=== PATIENT | female | born 1945 | race Caucasian/White ===

== ENCOUNTER 2017-08-31 08:00 | Inpatient (IN) | payer MEDICARE ==
[~2017-08-31] VITALS: Ht 154.9 cm; Wt 52.7 kg
[2017-09-14] MEDS ORDERED: POVIDONE IODINE 7.5% SCRUB 118 ML BOTTLE TOPICAL SCH (05:45)
[2017-09-14] MEDS ORDERED: SODIUM CHLORID 0.9% 500 ML IV PRN (05:45)
[2017-09-14] MEDS ORDERED: METOPROLOL TARTRATE 25 MG TAB PO PRN (05:45)
[2017-09-14] MEDS ORDERED: CHLORHEXIDINE GLUCONATE 4% SOLN 120 ML BTL TOPICAL SCH (05:45)
[2017-09-14] MEDS ORDERED: LACTATED RINGER'S 1000 ML IV PRN (05:45)
[2017-09-14] MEDS ORDERED: CHLORHEXIDINE GLUCONATE 2 % 1 PACK (2 CLOTHS) TOPICAL PRN (05:45)
[2017-09-14] MEDS ORDERED: POVIDONE IODINE 5% (ANTISEPSIS KIT) 4 APPLICATIONS EACH NARE PRN (05:45)
[2017-09-14] MEDS ORDERED: ceFAZolin 2 GM/DEX PREMIX 50 ML IV SCH (06:00)
[2017-09-14] MEDS ORDERED: FAT EMULSION 20% INJ 0 ML ONE (06:02)
[2017-09-14] MEDS ORDERED: BUPIVACAINE LIPOSOME PF 1.3% 20 ML VIAL ONE ×2 (06:15→06:21)
[2017-09-14] MEDS ORDERED: GENTAMICIN SULFATE 80 MG/2 ML VIAL ONE (06:19)
[2017-09-14] MEDS ORDERED: MIDAZOLAM HCL 2 MG/2 ML VIAL ONE ×2 (06:21→07:39)
[2017-09-14] MEDS ORDERED: FAMOTIDINE 20 MG/2 ML VIAL ONE (06:22)
[2017-09-14] MEDS ORDERED: ACETAMINOPHEN 1000 MG/100 ML 100 ML IV ONE (06:37)
[2017-09-14] MEDS ORDERED: BUPIVACAINE PF 0.75% DEX-WATER INJ 2 ML AMP ONE ×2 (06:38→06:58)
[2017-09-14] MEDS ORDERED: PROPOFOL 500 MG/50 ML INJ 0 ML ONE (06:40)
[2017-09-14] MEDS ORDERED: TRANEXAMIC ACID IV SCH ×2 (07:00→10:00)
[2017-09-14] MEDS ORDERED: SODIUM CHLORIDE 0.9% IV SCH ×2 (07:00→10:00)
[2017-09-14] MEDS ORDERED: MAGNESIUM HYDROXIDE SUSP 30 ML CUP PO PRN (07:00)
[2017-09-14] MEDS ORDERED: EXPAREL PERI-ARTICULAR INJECTION (TOTAL VOL. 100 ML) P-ARTICULR SCH ×2 (07:00)
[2017-09-14] MEDS ORDERED: MORPHINE SULFATE 4 MG/ML INJ IV PUSH PRN (07:00)
[2017-09-14] MEDS ORDERED: Post-op Orders (for Pharmacy) XX ONE (07:00)
[2017-09-14] MEDS ORDERED: oxyCODONE/ACETAMINOPHEN 5 MG/325 MG TAB PO PRN (07:00)
[2017-09-14] MEDS ORDERED: TRANEXAMIC ACID INJ 0 MG in SODIUM CHLORIDE 0.9% INJ 100 ML IV SCH (07:00)
[2017-09-14] MEDS ORDERED: ECASA81 PO (07:04)
--- NOTE | 2017-09-14 07:06 | HHI.FF ---
Face to Face Verification Diagnosis: (1) Status post total left knee replacement Physical Therapy Gait training Knee: Total knee, Protocol: Left, Gait training, Full weight bearing Left LE Weight Bearing: WB as tolerated Left LE Range of Motion: Active ROM (AROM, AAROM, PROM. ROM goal is 0 extension to 140 of flexion. Range in the operating room was 0 extension to 150 of flexion.) Nursing Nursing: Dressing changes Dressing Changes: Daily dressing change, Coverderm/Primapore Additional Instructions Do not remove [facility]. I have seen patient Dionne Armenta on 09/14/17. My clinical findings support the need for the requested home health care services because: Ltd mobility - disease progression Limited ability to care for self High risk of falls I certify that my clinical findings support that this patient is homebound because: Post-op weakness Unsteady gait/balance Unsafe to leave home unassisted Destinee Bradshaw MD (Charles) September 14, 2017 07:06
[2017-09-14] MEDS ORDERED: ONDANSETRON ODT 4 MG TAB PO PRN (08:15)
[2017-09-14] MEDS: CYANOCOBALAMIN 1,000 MCG TAB PO SCH (09:00)
[2017-09-14] MEDS: FOLIC ACID 1 MG TAB PO SCH (09:00)
[2017-09-14] MEDS ORDERED: NON-FORMULARY DRUG (Biotin 1,000 MG) PO SCH (09:00)
[2017-09-14] MEDS ORDERED: NON-FORMULARY DRUG (Glucosamine-Chondroitin 1 TAB) PO SCH (09:00)
[2017-09-14] MEDS: VALSARTAN 160 MG TAB PO SCH (09:00)
[2017-09-14] MEDS: CALCIUM/VITAMIN D 250 MG/125 U TAB PO SCH ×2 (09:00→20:39)
--- NOTE | 2017-09-14 09:49 | PD.OP ---
Operative Report Date of Surgery: September 14, 2017 Preoperative Diagnosis: (1) Primary osteoarthritis of left knee Postoperative Diagnosis: (1) Primary osteoarthritis of left knee Procedure: Total knee arthroplasty using [employer] Triathlon prosthesis (cemented) Anesthesia: Spinal with supplemental general and supplemental adductor canal block regional and local with Exparel Surgeon: Tony Bradshaw MD Clip Bolter And Wrapper(s): RAJAN Samuel Operation and Findings: Indications and Findings: This 72-year-old woman has had left knee pain for the past 3 years. This has been progressively worsening so that she has limited ambulation tolerance compared to what she previously was able to do. She has pain in the entire knee with difficulty ascending and descending stairs and difficulty standing from a seated position. She has been treated with oral analgesics, oral steroids, activity modification, intra-articular corticosteroids, Visco supplementation, physical therapy and ambulatory aids. She has been unable to take anti-inflammatory agents because of renal disease. Physical findings showed some degenerative varum with tenderness in the medial and lateral compartments, crepitation throughout the entire range of motion and tenderness. X-rays showed severe osteoarthritis with loss of articular cartilage to [id number] in the medial compartment, osteophytes and some medial eburnation. Operative findings: There was severe osteoarthritis it was tricompartmental in nature. The predominant change was immediately where there was some subchondral sclerosis. There are osteophytes throughout the knee. The medullary bone beyond the area of the joint was somewhat osteoporotic. There is some medial femoral condyle cysts. The prosthesis used was a [employer] Triathlon prosthesis. The femur was a size 5, cruciate retaining, cemented. The tibial baseplate was a size 5 cemented with an 11 mm, cruciate retaining, X3 polyethylene spacer. The patella was a size 38 mm asymmetric X3 polyethylene. The cement was Symplex. The patient was brought to the clean-air operating suite. A spinal anesthetic was administered as well as a regional anesthetic by adductor canal block. The position was supine with a small bolster under the hip on the operative side. A pneumatic tourniquet was applied to the upper thigh. The lower extremity was then prepped with alcohol, Hibiclens and ChloraPrep and draped in the usual manner with the knee draped free. An appropriate timeout procedure was carried out. An incision was made from about 3 fingerbreadths above the superior medial pole of patella down the tibial tubercle on the medial side. The incision was deepened through the subcutaneous tissue to the retinacular structures which were exposed medially and laterally. A medial retinacular incision was then made from the superior middle pole of patella down the tibial tubercle and up into the quadriceps tendon splitting it longitudinally and the medial one third. The patella was reflected. The infrapatellar fat pad was debulked. The anterior cruciate ligament was excised. Medial and lateral meniscectomies were initiated. Fenestrations were made in the distal femur and proximal tibia for intramedullary referencing guides. The distal femoral cutting guide and jig were then assembled for a 5, 8 mm cut. When this was fit position and placed cutting block was stabilized with pins. The jig was removed. The distal femoral cut was then completed with the oscillating saw. The sizing guide was then positioned in place along Whitesides line and the epicondylar axis and stabilized with pins. The femoral size was then determined as noted above. The 4-in-1 cutting block was then positioned in place. Anterior and posterior cuts were made followed by posterior and anterior chamfer cuts taking care to prevent injury to ligamentous structures. Osteophytes were then trimmed from the distal femur. A bone plug was then placed into the fenestration of the distal femur. Some cysts were noted in the medial aspect of the femur. These were curetted and packed with bone graft from the resected bone. The proximal tibia was then exposed. The medial and lateral meniscectomies were completed. The proximal tibial cutting guide was then positioned in place and stabilized with a pin for rotation. The depth of cut was then verified with a stylus off the lateral side. The cutting block was stabilized with pins. The jig was removed. The depth of cut was then verified and adjusted appropriately with the use of the spacer block. The proximal tibial cut was then made with the oscillating saw taking care to prevent injury to neurovascular and ligamentous structures. Proximal tibial bone was removed. Local anesthetic was administered with Exparel in the posterior capsule. The tibial baseplate trial was then positioned in place. After verifying the appropriate size, the base plate trial was positioned in place along with its spacer. The femoral component was then impacted into place. The alignment was checked. The tibial baseplate was then pinned in place on the tibia. Attention was directed to the patella. The patella drill guide was positioned in place for the appropriate sized patella. Patellar drilling was then carried out. The trial patella was positioned in place. The knee was taken through a range of motion which was easily 0 extension to 150. The patella trial was removed. The femoral drill holes were made. The femoral trials were removed. The tibial spacer was removed. A bone plug was placed into the proximal tibia. The tibial punch was impacted through the proximal tibial punch guide. The cut ends of bone were then cleaned with pulse lavage. Simplex cement was then pressurized into the proximal aspect of the tibia after drying. The tibial baseplate was then impacted into place and seated appropriately. Excess cement was trimmed. The spacer was inserted. The distal end of the femur was then cleaned with pulse lavage. After drying, cement was applied to the distal end of the femur and the femoral component. The the femoral component was then impacted into place and seated appropriately. Excess cement was trimmed. The posterior surface of the patella was cleaned with pulse lavage. Cement was then injected into the posterior surface of the patella and the patella component. The patella component was then seated with the patellar clamp and tightened appropriately. Excess cement cement was trimmed. The remainder of the Exparel was then injected throughout the knee as a local anesthetic. Drains were brought out the superior lateral aspect of the suprapatellar pouch. The knee was taken through a range of motion which was comparable to the previous range of motion with excellent stability in flexion and extension and appropriate patellofemoral tracking. Wound closure then commenced using 0 Vicryl interrupted [id number] sutures for the capsular and fascial structures, 2- 0 Vicryl interrupted simple sutures with buried knots for the subcutaneous tissues and 4-0 Monocryl, continuous subcuticular closure for the skin. The wound was then dressed with Dermabond Prineo followed by Optifoam silver impregnated dressing. Sterile soft roll with a cooling pad and Viral bandage from the base of the toes to mid thigh were then applied. Patient was then transferred from the operating room to the recovery room in satisfactory condition having tolerated procedure well. Counts are correct. Specimens: None. Estimated blood loss: 200 mL Destinee Bradshaw MD (Charles) September 14, 2017 09:48
[2017-09-14] MEDS ORDERED: DO NOT ADM ANY ANTICOAGULANT DRUGS PRN (10:00)
[2017-09-14] MEDS: LACTATED RINGER'S 1000 ML INJ 1,000 ML IV SCH (10:15)
--- NOTE | 2017-09-14 11:45 | RADRPT ---
EXAM DATE/TIME: 09/14/2017 10:20 [facility] COMPARISON: No previous studies available for comparison. INDICATIONS : Post-op left knee. MEDICAL HISTORY : None. SURGICAL HISTORY : None. ENCOUNTER: Initial ACUITY: 1 day PAIN SCORE: 0/10 LOCATION: Left knee. FINDINGS: Total knee arthroplasty is present. Hardware appears intact. Alignment is anatomic. Surgical drains a re present. CONCLUSION: Satisfactory appearance post left TKA Gilmar Hunt MD on September 14, 2017 at 11:43 Board Certified Radiologist. This report was verified electronically.
[2017-09-14 12:00] VITALS: BP 131/62; PULSE 75; RESP 18; TEMP 97.1; O2SAT 97
[2017-09-14] MEDS ORDERED: ceFAZolin INJ 1,000 MG VIAL IV ONE (12:00)
[2017-09-14] MEDS ORDERED: ONDANSETRON HCL 4 MG/2 ML VIAL IV PUSH ONE (12:00)
[2017-09-14] MEDS ORDERED: LACTATED RINGER'S 1000 ML INJ 1,000 ML IV ONE (12:00)
[2017-09-14] MEDS ORDERED: PHENYLEPH/NS 1000 MCG/10 ML SYR IV ONE (12:00)
[2017-09-14] MEDS ORDERED: ePHEDrine/NS 25 MG/5 ML SYRINGE IV ONE (12:00)
[2017-09-14] MEDS ORDERED: PROPOFOL 200 MG/20 ML AMP IV ONE (12:00)
[2017-09-14] MEDS ORDERED: LIDOCAINE HCL 1% PF 5 ML SYRINGE OTHER ONE (12:00)
[2017-09-14] MEDS ORDERED: DEXAMETHASONE SOD PHOS 4 MG/ML VIAL IV ONE (12:00)
[2017-09-14] MEDS: KETOROLAC TROMETHAMINE 30 MG/ML (IVP) VIAL IVP SCH ×2 (14:40→20:42)
--- NOTE | 2017-09-14 15:39 | PD.CONS ---
H[facility] Consult Requested By DR GEMINI OSBORN MD Reason for Consult Medical management Primary Care Physician Bib Soto MD Diagnoses: History of Present Illness Patient is a 72-year-old female. Who underwent left total knee arthroplasty due to severe osteoarthritis. Patient tolerated the procedure well. Is now being seen postoperatively. We have been asked to see her regarding help with medical management. Review of Systems Constitutional: DENIES: Diaphoretic episodes, Fatigue, Fever, Weight gain, Weight loss, Chills, Dizziness, Change in appetite, Night Sweats Endocrine: DENIES: Abnorml menstrual pattern, Heat/cold intolerance, Polydipsia , Polyuria, Polyphagia Eyes: DENIES: Blurred vision, Diplopia, Eye inflammation, Eye pain, Vision loss , Photosensitivity, Double Vision Ears, nose, mouth, throat: DENIES: Tinnitus, Hearing loss, Vertigo, Nasal discharge, Oral lesions, Throat pain, Odynophagia Respiratory: DENIES: Apneas, Cough, Snoring, Wheezing, Hemoptysis, Sputum production, Shortness of breath Cardiovascular: DENIES: Chest pain, Palpitations, Syncope, Dyspnea on Exertion , PND, Lower Extremity Edema, Orthopnea, Claudication Gastrointestinal: DENIES: Abdominal pain, Black stools, Bloody stools, Constipation, Diarrhea, Nausea, Vomiting, Difficulty Swallowing Genitourinary: DENIES: Abnormal vaginal bleeding, Dysmenorrhea, Dyspareunia, Sexual dysfunction Musculoskeletal: COMPLAINS OF: Joint pain, DENIES: Muscle aches, Stiffness, Joint Swelling, Back pain, Neck pain Integumentary: DENIES: Abnormal pigmentation, Pruritus, Rash, Nail changes, Breast masses, Breast skin changes, Nipple discharge Hematologic/lymphatic: DENIES: Bruising, Lymphadenopathy Immunologic/allergic: DENIES: Eczema, Urticaria Neurologic: COMPLAINS OF: Abnormal gait, DENIES: Headache, Localized weakness, Paresthesias, Seizures, Speech Problems, Tremor, Poor Balance Psychiatric: DENIES: Anxiety, Confusion, Mood changes, Depression, Hallucinations, Agitation, Suicidal Ideation, Homicidal Ideation, Delusions Except as stated in HPI: all other systems reviewed are Neg Past Family Social History Allergies: Coded Allergies: hydromorphone (Verified Allergy, Severe, Cardiac Arrest, 08/31/17) Iodinated Contrast- Oral and IV Dye (Verified Allergy, Unknown, 09/14/17) polymyxin B (Verified Allergy, Unknown, 09/14/17) NSAIDS (Non-Steroidal Anti-Inflamma (Verified Adverse Reaction, Severe, 08/31/17) pt only has one kidney hydrocodone (Unverified Adverse Reaction, Intermediate, Itching, 12/09/16) Past Medical History Chronic neck pain Numbness and tingling in toes left leg History of ACDF in the neck headaches Coronary artery disease and history of coronary stent hypercholesterolemia History of arrhythmia History of right kidney stent right renal stent Osteoarthritis left knee arthroscopically Hysterectomy Hypertension Hyperlipidemia Past Surgical History ACDF of her neck Coronary artery disease stent in the proximal left anterior descending artery in 2003 Right kidney renal stent in 2003 Left knee arthroscopic surgery Hysterectomy Status post left foot fracture Status post right elbow fracture Reported Medications Reported Meds & Active Scripts Active Reported Magnesium Oxide 400 Mg Tab PO DAILY Glucosamine-Chondroitin 500-400 Mg Tab 1 Tab PO BID Folic Acid 800 Mcg Tab 800 Mcg PO DAILY Vitamin B-12 (Cyanocobalamin) 1,000 Mcg Tab 1,000 Mcg PO DAILY Caltrate 600+D Plus Minerals (Calcium Carbonate-Vitamin D W/Minerals) 600-800 Mg -Unit Tab 1 Tab PO BID Toprol XL (Metoprolol Succinate) 50 Mg Tab 50 Mg PO HS Multi-Vitamins (Multiple Vitamin) 1 Tab Tab PO DAILY Diovan (Valsartan) 160 Mg Tab 160 Mg PO DAILY Ambien (Zolpidem Tartrate) 5 Mg Tab 5 Mg PO HS PRN Biotin 1,000 Mcg Tab 1,000 Mg PO DAILY Lipitor (Atorvastatin Calcium) 40 Mg Tab 40 Mg PO HS Aspirin EC (Aspirin) 81 Mg Tabdr 81 Mg PO DAILY Norvasc (Amlodipine Besylate) 5 Mg Tab 5 Mg PO HS Active Ordered Medications Current Medications Lactated Ringer's 1,000 ml @ 30 mls/hr Q24H PRN IV SEE LABEL COMMENTS Last administered on 09/14/17at 06:00; Start 09/14/17 at 05:45; Stop 09/17/17 at 05:44 Sodium Chloride 500 ml @ 30 mls/hr [id number] PRN IV SEE LABEL COMMENTS; Start at 05:45; Stop 09/17/17 at 05:44 Metoprolol Tartrate (Lopressor) 25 mg GROUP PRODUCT MANAGER PRN PO SEE LABEL COMMENTS; Start 09/14/17 at 05:45; Stop 09/17/17 at 05:44 Povidone Iodine (Betadine 5% Antisepsis Kit) 1 applic GROUP PRODUCT MANAGER PRN EACH NARE SEE LABEL COMMENTS; Start 09/14/17 at 05:45; Stop 09/17/17 at 05:44; Status Cancel Chlorhexidine Gluconate (Chlorhexidine 2% Cloth) 3 pack GROUP PRODUCT MANAGER PRN TOPICAL SEE LABEL COMMENTS Last administered on 09/14/17at 05:30; Start 09/14/17 at 05:45 ; Stop 09/17/17 at 05:44 Povidone Iodine (Betadine 7.5% Scrub) 1 applic ONCE TOPICAL ; Start 09/14/17 at 05:45; Stop 09/17/17 at 05:44 Chlorhexidine Gluconate (Hibiclens 4% Top Soln) 1 applic ONCE TOPICAL ; Start at 05:45; Stop 09/17/17 at 05:44 Tranexamic Acid 527 mg/Sodium Chloride 105.27 ml @ 200 mls/ hr ONCE IV Last administered on 09/14/17at 07:11; Start 09/14/17 at 07:00; Stop 09/14/17 at 13:00 ; Status DC Tranexamic Acid 527 mg/Sodium Chloride 105.27 ml @ 200 mls/ hr ONCE IV Last administered on 09/14/17at 10:29; Start 09/14/17 at 10:00; Stop 09/14/17 at 16:00 Bupivacaine Liposome 20 ml/ Sodium Chloride 100 ml @ 200 mls/hr ONCE P- ARTICULR Last administered on 09/14/17at 07:34; Start 09/14/17 at 07:00; Stop at 13:00; Status DC Cefazolin Sodium/ Dextrose 50 ml @ 100 mls/hr GROUP PRODUCT MANAGER IV Last administered on 09/14/17at 07:24; Start 09/14/17 at 06:00; Stop 09/15/17 at 05:59 Fat Emulsion Intravenous 0 ml @ As Directed STK-MED ONCE .ROUTE ; Start at 06:02; Stop 09/14/17 at 06:03; Status DC Bupivacaine Liposome (Exparel Pf 1.3% Inj) 20 ml STK-MED ONCE .ROUTE ; Start at 06:15; Stop 09/14/17 at 06:16; Status DC Gentamicin Sulfate (Gentamicin Inj) 240 mg STK-MED ONCE .ROUTE Last administered on 09/14/17at 07:34; Start 09/14/17 at 06:19; Stop 09/14/17 at 06:20 ; Status DC Bupivacaine Liposome (Exparel Pf 1.3% Inj) 20 ml STK-MED ONCE .ROUTE ; Start at 06:21; Stop 09/14/17 at 06:22; Status DC Fentanyl Citrate (fentaNYL INJ) 100 mcg STK-MED ONCE .ROUTE ; Start 09/14/17 at 06:21; Stop 09/14/17 at 06:22; Status DC Midazolam HCl (Versed Inj) 2 mg STK-MED ONCE .ROUTE ; Start 09/14/17 at 06:21; Stop 09/14/17 at 06:22; Status DC Famotidine (Pepcid Inj) 20 mg STK-MED ONCE .ROUTE ; Start 09/14/17 at 06:22; Stop 09/14/17 at 06:23; Status DC Acetaminophen 100 ml @ As Directed STK-MED ONCE IV ; Start 09/14/17 at 06:37; Stop 09/14/17 at 06:38; Status DC Fentanyl Citrate (fentaNYL INJ) 100 mcg STK-MED ONCE .ROUTE ; Start 09/14/17 at 06:37; Stop 09/14/17 at 06:38; Status DC Bupivacaine HCl/ Dextrose (Marcaine Spinal Inj) 2 ml STK-MED ONCE .ROUTE ; Start 09/14/17 at 06:38; Stop 09/14/17 at 06:39; Status DC Propofol 0 ml @ As Directed STK-MED ONCE .ROUTE ; Start 09/14/17 at 06:40; Stop 09/14/17 at 06:41; Status DC Bupivacaine HCl/ Dextrose (Marcaine Spinal Inj) 2 ml STK-MED ONCE .ROUTE ; Start 09/14/17 at 06:58; Stop 09/14/17 at 06:59; Status DC Lactated Ringer's 1,000 ml @ 80 mls/hr [id number] IV Last administered on at 10:15; Start 09/14/17 at 08:00 Cefazolin Sodium 1000 mg/Sodium Chloride 100 ml @ 200 mls/hr Q6H IV Last administered on 09/14/17at 13:11; Start 09/14/17 at 13:00; Stop 09/15/17 at 01:29 Miscellaneous Information (Misc Post-op Orders (for Pharmacy)) STAT ONCE XX ; Start 09/14/17 at 07:00; Stop 09/14/17 at 08:02; Status DC Morphine Sulfate (Morphine Inj) 4 mg Q3H PRN IV PUSH BREAKTHROUGH PAIN; Start 09/14/17 at 07:00 Oxycodone/ Acetaminophen (Percocet 5-325 Mg) 1 tab Q4H PRN PO PAIN LESS THAN 5 ON SCALE; Start 09/14/17 at 07:00 Oxycodone/ Acetaminophen (Percocet 5-325 Mg) 2 tab Q4H PRN PO PAIN SCALE 5 TO 10; Start 09/14/17 at 07:00 Ketorolac Tromethamine (Toradol Inj) 15 mg Q6H IVP Last administered on at 14:40; Start 09/14/17 at 14:00; Stop 09/16/17 at 08:01 Tranexamic Acid / Sodium Chloride 100 ml @ 200 mls/hr UNSCH IV ; Start at 07:00; Stop 09/14/17 at 07:29; Status UNV Ondansetron HCl (Zofran Odt) 4 mg Q6H PRN PO NAUSEA OR VOMITING; Start at 08:15 Docusate Sodium (Colace) 100 mg BID PO ; Start 09/15/17 at 21:00 Zolpidem Tartrate (Ambien) 5 mg HS PRN PO SLEEP; Start 09/14/17 at 21:00 Magnesium Hydroxide (Milk Of Magnesia Liq) 30 ml DAILY PRN PO CONSTIPATION; Start 09/14/17 at 07:00 Aspirin (Ecotrin Ec) 81 mg BID PO ; Start 09/15/17 at 09:00 Amlodipine Besylate (Norvasc) 5 mg HS PO ; Start 09/14/17 at 21:00 Atorvastatin Calcium (Lipitor) 40 mg HS PO ; Start 09/14/17 at 21:00 Cyanocobalamin (Vitamin B12) 1,000 mcg DAILY PO ; Start 09/14/17 at 09:00 Folic Acid (Folate) 1 mg DAILY PO ; Start 09/14/17 at 09:00 Metoprolol Succinate (Toprol Xl) 50 mg HS PO ; Start 09/14/17 at 21:00 Valsartan (Diovan) 160 mg DAILY PO ; Start 09/14/17 at 09:00 Non-Formulary Medication 1,000 mg DAILY PO ; Start 09/14/17 at 09:00; Stop 09/14 at 09:00; Status DC Calcium/Vitamin D (Oscal-D 250-125) 500 mg BID PO ; Start 09/14/17 at 09:00 Non-Formulary Medication 1 tab BID PO ; Start 09/14/17 at 09:00; Stop 09/14/17 at 09:00; Status DC Midazolam HCl (Versed Inj) 2 mg STK-MED ONCE .ROUTE ; Start 09/14/17 at 07:39; Stop 09/14/17 at 07:40; Status DC Miscellaneous Information ([facility] Nursing Information) ALL NURSING DEPARTME... UNSCH PRN .XX SEE LABEL COMMENTS; Start 09/14/17 at 10:00; Stop 09/15/17 at 09: 59 Lactated Ringer's 1,000 ml @ As Directed STK-MED ONCE IV ; Start 09/14/17 at 12 :00; Stop 09/14/17 at 12:19; Status DC Lidocaine HCl (Xylocaine-Mpf 1% Inj) 5 ml STK-MED ONCE OTHER ; Start 09/14/17 at 12:00; Stop 09/14/17 at 12:19; Status DC Phenylephrine HCl (Neosynephrine/ NS 1000 Mcg/10ml Syr) 1,000 mcg STK-MED ONCE IV ; Start 09/14/17 at 12:00; Stop 09/14/17 at 12:19; Status DC Ephedrine Sulfate (ePHEDrine/NS 25 MG/5 ML SYR) 50 mg STK-MED ONCE IV ; Start at 12:00; Stop 09/14/17 at 12:19; Status DC Dexamethasone Sodium Phosphate (Decadron Inj) 8 mg STK-MED ONCE IV ; Start 09/14 at 12:00; Stop 09/14/17 at 12:19; Status DC Ondansetron HCl (Zofran Inj) 4 mg STK-MED ONCE IV PUSH ; Start 09/14/17 at 12:00 ; Stop 09/14/17 at 12:19; Status DC Cefazolin Sodium (Ancef Inj) 1,000 mg STK-MED ONCE IV ; Start 09/14/17 at 12:00 ; Stop 09/14/17 at 12:19; Status DC Propofol (Diprivan 200 Mg/20 ml Inj) 400 mg STK-MED ONCE IV ; Start 09/14/17 at 12:00; Stop 09/14/17 at 12:19; Status DC Family History Atherosclerotic heart disease Malignancy Stroke Loop Social History Denies any tobacco Alcohol ingestion using mixed drinks 2 a week . Denies any illicits Physical Exam Vital Signs Vital Signs Date Time Temp Pulse Resp B/P (MAP) Pulse Ox O2 Delivery O2 Flow Rate FiO2 09/14/17 12:00 97.1 75 18 131/62 (85) 97 09/14/17 11:40 65 14 135/64 (87) 96 Room Air 09/14/17 11:30 63 14 130/64 (86) 95 Room Air 09/14/17 11:15 62 14 125/61 (82) 96 Room Air 09/14/17 11:00 71 14 139/67 (91) 96 Room Air 09/14/17 10:45 71 14 148/65 (92) 96 Room Air 09/14/17 10:30 74 14 130/62 (84) 96 Room Air 09/14/17 10:15 69 14 129/60 (83) 96 Room Air 09/14/17 10:03 97.9 79 14 128/57 (80) 100 Room Air 09/14/17 06:05 97.9 62 16 143/68 (93) 100 Physical Exam GENERAL: This is a well-nourished, well-developed patient, in no apparent distress. SKIN: No rashes, ecchymoses or lesions. Cool and dry. HEAD: Atraumatic. Normocephalic. No temporal or scalp tenderness. EYES: Pupils equal round and reactive. Extraocular motions intact. No scleral icterus. No injection or drainage. ENT: Nose without bleeding, purulent drainage or septal hematoma. Throat without erythema, tonsillar hypertrophy or exudate. Uvula midline. Airway patent. NECK: Trachea midline. No JVD or lymphadenopathy. Supple, nontender, no meningeal signs. CARDIOVASCULAR: Regular rate and rhythm without murmurs, gallops, or rubs. RESPIRATORY: Clear to auscultation. Breath sounds equal bilaterally. No wheezes , rales, or rhonchi. GASTROINTESTINAL: Abdomen soft, non-tender, nondistended. No hepato-splenomegaly , or palpable masses. No guarding. MUSCULOSKELETAL: Extremities without clubbing, cyanosis, or edema. No joint tenderness, effusion, or edema noted. No calf tenderness. Negative Homans sign bilaterally. Left knee is dressed with drain in place NEUROLOGICAL: Awake and alert. Cranial nerves II through XII intact. Motor and sensory grossly within normal limits. Five out of 5 muscle strength in all muscle groups. Normal speech. Insight and judgment is good Mood and behaviors are appropriate Laboratory None from this admission Imaging Last Impressions Knee X-Ray 09/14/17 [id number] Signed Impressions: Service Date/Time: Thursday, September 14, 2017 10:20 - CONCLUSION: Satisfactory appearance post left TKA Gilmar Hunt MD Assessment and Plan Assessment and Plan Status post left total knee arthroplasty for severe osteoarthritis We will defer anticoagulation and pain control to orthopedic surgery Hypertension resume home medications Hyperlipidemia resume home medications Renal insufficiency with nonfunctional kidney Coronary artery disease with history of stenting to the proximal left anterior descending artery History of ACDF in the past stable Patient will be followed throughout the admission for any other issues that arise. Will get a.m. labs and be available for any other issues. Thank you Dr. Osborn for allowing us to help in the care of Ms. Dionne Sandsord Code Status Full code Discussed Condition With RN and patient LuisWillard stock Chay CERDA September 14, 2017 15:39
[2017-09-14 16:00] VITALS: BP 133/64; PULSE 74; RESP 18; TEMP 97.5; O2SAT 100
[2017-09-14] MEDS: oxyCODONE/ACETAMINOPHEN 5 MG/325 MG TAB PO PRN (17:15)
[2017-09-14 20:00] VITALS: BP 110/57; PULSE 65; RESP 15; TEMP 97.5; O2SAT 97
[2017-09-14] MEDS ORDERED: METOPROLOL SUCCINATE 50 MG EXTENDED RELEASE TAB PO SCH (21:00)
[2017-09-14] MEDS ORDERED: ATORVASTATIN 40 MG TAB PO SCH (21:00)
[2017-09-14] MEDS ORDERED: amLODIPine BESYLATE 5 MG TAB PO SCH (21:00)
[2017-09-14] MEDS ORDERED: ZOLPIDEM TARTRATE 5 MG TAB PO PRN (21:00)
[2017-09-15] VITALS: BP 115/58; PULSE 62; RESP 16; TEMP 98.2; O2SAT 97
[2017-09-15] MEDS: KETOROLAC TROMETHAMINE 30 MG/ML (IVP) VIAL IVP SCH ×2 (01:13→08:09)
[2017-09-15 04:00] VITALS: BP 130/60; PULSE 61; RESP 16; TEMP 98.5; O2SAT 97
[2017-09-15 04:01] LABS: AUTOMATED NEUTROPHIL # 7.2 TH/MM3 (1.8-7.7); BASOPHIL % 0.2 % (0.0-2.0); EOSINOPHIL % 0.1 % (0.0-4.0); HEMATOCRIT 29.2 % (35.0-46.0); LYMPH % 14.3 % (9.0-44.0); LYMPHOCYTE # 1.4 TH/MM3 (1.0-4.8); MEAN CORPUSCULAR HEMOGLOBIN 31.5 PG (27.0-34.0); MEAN CORPUSCULAR HGB CONC 34.3 % (32.0-36.0); MEAN PLATELET VOLUME 7.7 FL (7.0-11.0); MONO % 8.7 % (0.0-8.0); MONOCYTE # 0.8 TH/MM3 (0-0.9); NEUT % 76.7 % (16.0-70.0); PLATELET COUNT 203 TH/MM3 (150-450); RED BLOOD COUNT 3.18 MIL/MM3 (4.00-5.30); RED CELL DISTRIBUTION WIDTH 13.3 % (11.6-17.2); WHITE BLOOD COUNT 9.4 TH/MM3 (4.0-11.0)
[2017-09-15 04:23] LABS: ALBUMIN 3.2 GM/DL (3.4-5.0); AST (GOT) 24 U/L (15-37); BICARBONATE 27.3 MEQ/L (21.0-32.0); BLOOD UREA NITROGEN 14 MG/DL (7-18); CALCIUM 9.4 MG/DL (8.5-10.1); CHLORIDE 105 MEQ/L (98-107); CREATININE 1.05 MG/DL (0.50-1.00); GLOMERULAR FILTRATION RATE 51 ML/MIN (>89); GLUCOSE,RANDOM 103 MG/DL (74-106); MAGNESIUM 1.8 MG/DL (1.5-2.5); SODIUM (NA) 141 MEQ/L (136-145)
[2017-09-15 04:24] LABS: ALT (GPT) 22 U/L (10-53); PHOSPHORUS 3.8 MG/DL (2.5-4.9)
[2017-09-15 04:32] LABS: ALKALINE PHOSPHATASE 59 U/L (45-117); FREE T4 0.93 NG/DL (0.76-1.46); TOTAL BILIRUBIN ADULT 0.4 MG/DL (0.2-1.0); TOTAL PROTEIN 5.6 GM/DL (6.4-8.2)
--- NOTE | 2017-09-15 06:07 | PD.ORT.PN ---
Subjective Post Op Day #: 1 Subjective Remarks She is doing well. She has minimal complaints. There is almost no pain. Range of Motion 0 extension to 91 of flexion. Distance Walked 110 feet with PT. Objective Vitals Vital Signs Date Time Temp Pulse Resp B/P (MAP) Pulse Ox O2 Delivery O2 Flow Rate FiO2 09/15/17 04:00 98.5 61 16 130/60 (83) 97 09/15/17 00:00 98.2 62 16 115/58 (77) 97 09/14/17 20:00 97.5 65 15 110/57 (74) 97 09/14/17 19:21 Room Air 09/14/17 16:00 97.5 74 18 133/64 (87) 100 09/14/17 12:00 97.1 75 18 131/62 (85) 97 09/14/17 11:40 65 14 135/64 (87) 96 Room Air 09/14/17 11:30 63 14 130/64 (86) 95 Room Air 09/14/17 11:15 62 14 125/61 (82) 96 Room Air 09/14/17 11:00 71 14 139/67 (91) 96 Room Air 09/14/17 10:45 71 14 148/65 (92) 96 Room Air 09/14/17 10:30 74 14 130/62 (84) 96 Room Air 09/14/17 10:15 69 14 129/60 (83) 96 Room Air 09/14/17 10:03 97.9 79 14 128/57 (80) 100 Room Air 09/14/17 06:05 97.9 62 16 143/68 (93) 100 I/O 09/14/17 09/14/17 09/14/17 09/15/17 09/15/17 09/15/17 07:00 15:00 23:00 07:00 15:00 23:00 Intake Total 1600 ml 240 ml 600 ml Output Total 200 ml 180 ml 20 ml Balance 1400 ml 60 ml 580 ml Intake Oral 240 ml IV Total 600 ml Other 1600 ml Output Drainage Total 180 ml 20 ml Estimated Blood Loss 200 ml Result Diagram: 09/15/17 0338 09/15/17 0338 Imaging Last 24 hours Impressions Knee X-Ray 09/14/17 0657 Signed Impressions: Service Date/Time: Akbar, September 14, 2017 10:20 - CONCLUSION: Satisfactory appearance post left TKA Gilmar Hunt MD Objective Remarks She is resting comfortably, supine in bed, in the CPM. The neurovascular status is intact. The dressing is dry and intact. Assessment & Plan Ortho Post Op Day #: 1 Problem List: (1) Primary osteoarthritis of left knee ICD Codes: M17.12 - Unilateral primary osteoarthritis, left knee Status: Resolved (2) Status post total left knee replacement ICD Codes: Z96.652 - Presence of left artificial knee joint Plan: Continue postop care and PT. Assessment and Plan Condition: Good. Orthopedically stable. DVT prophylaxis: TEDs, aspirin, sequentials. Discharge plans: Home with home health care. An appointment was scheduled through the office. Prescriptions: Percocet 5/325 Destinee Bradshaw MD ([place]) September 15, 2017 06:07
--- NOTE | 2017-09-15 06:16 | HHI.DS ---
Discharge Summary Admission Date September 14, 2017 at 05:08 Discharge Date: September 15, 2017 Admitting Diagnosis Primary osteoarthritis, left knee. Diagnosis: (1) Primary osteoarthritis of left knee Diagnosis: Principal ICD Codes: M17.12 - Unilateral primary osteoarthritis, left knee Status: Resolved (2) Status post total left knee replacement Diagnosis: Principal ICD Codes: Z96.652 - Presence of left artificial knee joint Procedures Left total knee arthroplasty using Irene Triathlon prosthesis (cemented) Brief History This is a 72 year old female patient has had long-standing left knee pain for at least the past 3 years. She has not responded to conservative measures including oral and intra-articular corticosteroids, viscosupplementation, ambulatory aids and activity modification. She could not take anti- inflammatory agents because she has only one kidney. Physical findings showed genuine varum with tenderness and crepitation on range of motion. There are palpable osteophytes. X-ray showed severe arthritis with loss of articular cartilage to bone on bone particularly in the medial compartment, eburnation and osteophytes. CBC/BMP: 09/15/17 0338 09/15/17 0338 Significant Findings Laboratory Tests Test 09/15/17 03:38 Red Blood Count 3.18 MIL/MM3 (4.00-5.30) Hemoglobin 10.0 GM/DL (11.6-15.3) Hematocrit 29.2 % (35.0-46.0) Neutrophils (%) (Auto) 76.7 % (16.0-70.0) Monocytes (%) (Auto) 8.7 % (0.0-8.0) Creatinine 1.05 MG/DL (0.50-1.00) Total Protein 5.6 GM/DL (6.4-8.2) Albumin 3.2 GM/DL (3.4-5.0) Estimat Glomerular Filtration Rate 51 ML/MIN (>89) Imaging Last 72 hours Impressions Knee X-Ray 09/14/17 0657 Signed Impressions: Service Date/Time: Thursday, September 14, 2017 10:20 - CONCLUSION: Satisfactory appearance post left TKA Gilmar Hunt MD PE at Discharge She is resting comfortably, supine in bed, in the CPM. The neurovascular status is intact. The dressing is dry and intact. Hospital Course The patient was admitted as noted above. The above noted operative procedure was carried out that day. Preoperatively prophylactic antibiotics were administered Ancef according to protocol. These were continued postoperatively. The patient also received tranexamic acid to help with hemostasis according to protocol. In the postanesthesia care unit a continuous passive motion device was initiated. Also initiated were mechanical methods of DVT prophylaxis in the form of KOLBY stockings and sequentials. Physical therapy was initiated on the day of surgery. She was able to walk 110 feet with therapy. She was able to bend to 91. On postoperative day #1 physical therapy continued. The use of the continuous passive motion device continued. DVT prophylaxis with aspirin 81 mg was initiated at this time. The patient continued physical therapy throughout the hospitalization. The distance walked and range of motion improved throughout the hospitalization. The patient was discharged on postoperative day 1 with the disposition being to home with home health care. An appointment for follow-up was made prior to admission. Pt Condition on Discharge: Good Discharge Disposition: Disch w/ Home Health Serv Discharge Instructions Diet Instructions: As Tolerated, No Restrictions Activities You Can Perform: Full Weight Bearing, Shower Only-No Bath Activities to Avoid: Lifting/Bending, Strenuous Activity, Bathing, Driving Follow up Referrals: Orthopedics with Destinee Bradshaw MD ([place]) SNF/NURSING HOME/ with [facility] New Medications: Aspirin DR (Aspirin DR) 81 Mg Tabdr 81 MG PO BID for Prevent Blood Clot for 30 Days, #60 TAB Oxycodone HCl/Acetaminophen (Oxycodone-Acetaminophen 5-325) 5 Mg-325 Mg Tablet 1 TAB PO Q4H PRN for PAIN SCALE 1 TO 10, #30 TAB Continued Medications: Amlodipine (Norvasc) 5 Mg Tab 5 MG PO HS for Blood Pressure Management, #30 TAB 0 Refills Atorvastatin (Lipitor) 40 Mg Tab 40 MG PO HS for Cholesterol Management, #30 TAB 0 Refills Biotin (Biotin) 1,000 Mcg Tab 1000 MG PO DAILY, #1 BOTTLE Calcium Carbonate-Vitamin D W/Minerals (Caltrate 600+D Plus Minerals) 600-800 Mg -Unit Tab 1 TAB PO BID for Nutritional Supplement, TAB 0 Refills Cyanocobalamin (Vitamin B-12) 1,000 Mcg Tab 1000 MCG PO DAILY for Nutritional Supplement, #1 BOTTLE 0 Refills Folic Acid (Folic Acid) 800 Mcg Tab 800 MCG PO DAILY for Nutritional Supplement, TAB 0 Refills Glucosamine-Chondroitin (Glucosamine-Chondroitin) 500-400 Mg Tab 1 TAB PO BID for Herbal Supplements, TAB 0 Refills Magnesium Oxide (Magnesium Oxide) 400 Mg Tab PO DAILY Metoprolol Succinate ER 24 HR (Toprol XL) 50 Mg Tab 50 MG PO HS, #30 TAB 0 Refills Multiple Vitamin (Multi-Vitamins) 1 Tab Tab PO DAILY Valsartan (Diovan) 160 Mg Tab 160 MG PO DAILY, #30 TAB 0 Refills Zolpidem (Ambien) 5 Mg Tab 5 MG PO HS PRN for INSOMNIA, TAB 0 Refills Discontinued Medications: Aspirin (Aspirin EC) 81 Mg Tabdr 81 MG PO DAILY, TAB 0 Refills Destinee Bradshaw MD ([place]) September 15, 2017 06:16
[2017-09-15] MEDS ORDERED: OXYC1TAB63 PO (06:17)
[2017-09-15 08:00] VITALS: BP 142/58; PULSE 66; RESP 17; TEMP 98.5; O2SAT 99
[2017-09-15] MEDS: CALCIUM/VITAMIN D 250 MG/125 U TAB PO SCH (08:13)
[2017-09-15] MEDS: VALSARTAN 160 MG TAB PO SCH (08:13)
[2017-09-15] MEDS: CYANOCOBALAMIN 1,000 MCG TAB PO SCH (08:13)
[2017-09-15] MEDS: FOLIC ACID 1 MG TAB PO SCH (08:13)
[2017-09-15] MEDS: LACTATED RINGER'S 1000 ML INJ 1,000 ML IV SCH (09:00)
[2017-09-15] MEDS ORDERED: ASPIRIN EC 81 MG TABEC PO SCH (09:00)
--- NOTE | 2017-09-15 10:43 | HHI.PR ---
Subjective Remarks Follow-up for s/p left TKA, hypertension, CAD. The patient is seen sitting upright in bedside recliner. She reports her left knee pain is fairly well controlled. Denies any fever/chills, lightheadedness, chest pain, shortness of breath, or abdominal complaints. Last bowel movement was 2 days ago on Thursday. She is tolerating oral intake. Vital signs reviewed and stable. Objective Vitals Vital Signs Date Time Temp Pulse Resp B/P (MAP) Pulse Ox O2 Delivery O2 Flow Rate FiO2 09/15/17 09:09 16 09/15/17 08:00 98.5 66 17 142/58 (86) 99 09/15/17 04:00 98.5 61 16 130/60 (83) 97 09/15/17 00:00 98.2 62 16 115/58 (77) 97 09/14/17 20:00 97.5 65 15 110/57 (74) 97 09/14/17 19:21 Room Air 09/14/17 16:00 97.5 74 18 133/64 (87) 100 09/14/17 12:00 97.1 75 18 131/62 (85) 97 09/14/17 11:40 65 14 135/64 (87) 96 Room Air 09/14/17 11:30 63 14 130/64 (86) 95 Room Air 09/14/17 11:15 62 14 125/61 (82) 96 Room Air 09/14/17 11:00 71 14 139/67 (91) 96 Room Air 09/14/17 10:45 71 14 148/65 (92) 96 Room Air I/O 09/14/17 09/14/17 09/14/17 09/15/17 09/15/17 09/15/17 07:00 15:00 23:00 07:00 15:00 23:00 Intake Total 1600 ml 240 ml 950 ml 105.27 ml Output Total 200 ml 180 ml 20 ml Balance 1400 ml 60 ml 930 ml 105.27 ml Intake Oral 240 ml 350 ml IV Total 600 ml 105.27 ml Other 1600 ml Output Drainage Total 180 ml 20 ml Estimated Blood Loss 200 ml Result Diagram: 09/15/17 0338 09/15/17 0338 Imaging Last Impressions Knee X-Ray 09/14/17 0657 Signed Impressions: Service Date/Time: Thursday, September 14, 2017 10:20 - CONCLUSION: Satisfactory appearance post left TKA Gilmar Hunt MD Objective Remarks GENERAL: Well-nourished, well-developed pleasant female patient in NAD. SKIN: Warm and dry. No rash. HEENT: Normocephalic. Atraumatic. Pupils equal and round. Mucous membranes pink and moist. CARDIOVASCULAR: Regular rate and rhythm. No murmur appreciated. RESPIRATORY: No accessory muscle use. Clear to auscultation. Breath sounds equal bilaterally. GASTROINTESTINAL: Abdomen soft, non-tender, nondistended. Normoactive bowel sounds x4. MUSCULOSKELETAL: No obvious deformities. Extremities without clubbing, cyanosis , or edema. Left knee and surgical dressing/Viral, CDI. NEUROLOGICAL: Awake and alert. No obvious cranial nerve deficits. Motor grossly within normal limits. Moving all extremities spontaneously. Normal speech. PSYCHIATRIC: Appropriate mood and affect; insight and judgment normal. Procedures 09/14/17 -left total knee arthroplasty by Dr. Bradshaw Medications and IVs Current Medications Medications (Trade) Dose Ordered Sig/Yovany Route Start Time Stop Time Status Last Admin Lactated Ringer's 1,000 ml @ 30 mls/hr Q24H PRN IV 09/14/17 05:45 09/17/17 05:44 09/14/17 06:00 Sodium Chloride 500 ml @ 30 mls/hr [id number] PRN IV 09/14/17 05:45 09/17/17 05:44 (Lopressor) 25 mg [employer] PRN PO 09/14/17 05:45 09/17/17 05:44 (Chlorhexidine 2% Cloth) 3 pack [employer] PRN TOPICAL 09/14/17 05:45 09/17/17 05:44 09/14/17 05:30 (Betadine 7.5% Scrub) 1 applic ONCE TOPICAL 09/14/17 05:45 09/17/17 05:44 (Hibiclens 4% Top Soln) 1 applic ONCE TOPICAL 09/14/17 05:45 09/17/17 05:44 Lactated Ringer's 1,000 ml @ 80 mls/hr [id number] IV 09/14/17 08:00 09/14/17 10:15 (Morphine Inj) 4 mg Q3H PRN IV PUSH 09/14/17 07:00 (Percocet 5-325 Mg) 1 tab Q4H PRN PO 09/14/17 07:00 09/14/17 17:15 (Percocet 5-325 Mg) 2 tab Q4H PRN PO 09/14/17 07:00 (Toradol Inj) 15 mg Q6H IVP 09/14/17 14:00 09/16/17 08:01 09/15/17 08:09 (Zofran Odt) 4 mg Q6H PRN PO 09/14/17 08:15 (Colace) 100 mg BID PO 09/15/17 21:00 (Ambien) 5 mg HS PRN PO 09/14/17 21:00 (Milk Of Magnesia Liq) 30 ml DAILY PRN PO 09/14/17 07:00 (Ecotrin Ec) 81 mg BID PO 09/15/17 09:00 09/15/17 08:13 (Norvasc) 5 mg HS PO 09/14/17 21:00 (Lipitor) 40 mg HS PO 09/14/17 21:00 09/14/17 20:39 (Vitamin B12) 1,000 mcg DAILY PO 09/14/17 09:00 09/15/17 08:13 (Folate) 1 mg DAILY PO 09/14/17 09:00 09/15/17 08:13 (Toprol Xl) 50 mg HS PO 09/14/17 21:00 (Diovan) 160 mg DAILY PO 09/14/17 09:00 09/15/17 08:13 (Oscal-D 250-125) 500 mg BID PO 09/14/17 09:00 09/15/17 08:13 A/P Assessment and Plan 72-year-old female with history of osteoarthritis, hypertension, CAD with stent x1, hyperlipidemia, admitted to [facility] for left total knee arthroplasty by Dr. Bradshaw on 09/14. Hospitalist consulted for medical management. Osteoarthritis s/p left total knee arthroplasty: Surgery done 09/[address] Bradshaw -Continue management per orthopedics -Pain control with Percocet prn and IV morphine prn breakthrough -DVT prophylaxis with aspirin 81mg bid per ortho -Continue physical therapy Hypertension/hyperlipidemia: Chronic, BP fairly well-controlled -Continue home medications including Toprol-XL 50 mg hs, Norvasc 5 mg hs, Diovan 160mg daily, and Lipitor 40mg hs -Monitor BP, adjust antihypertensives as needed CAD with stent: Chronic -No complaint of chest pain -Continue home medications with beta-ofe, carbon, statin, aspirin DVT prophylaxis: With aspirin bid per ortho Discharge Planning Patient is medically clear for discharge. Likely discharge today per orthopedics. Shanta Lauren PA-C September 15, 2017 10:43
[2017-09-15 12:00] VITALS: BP 163/72; PULSE 62; RESP 18; TEMP 97.8; O2SAT 100
[2017-09-15] MEDS: oxyCODONE/ACETAMINOPHEN 5 MG/325 MG TAB PO PRN (12:57)
[2017-09-15 16:20] LABS: HEMOGLOBIN A1C 5.6 % (4.3-6.0)
[2017-09-15] MEDS ORDERED: DOCUSATE SODIUM 100 MG CAP PO SCH (21:00)
== END 2017-09-15 15:25 | disposition home health service (06) | DRG 470 ==
LOC: HSDI 09-14 05:08 → N06B 09-14 11:44
PROVIDERS: ADMIT Orthopaedic Surgery; ATTEND Orthopaedic Surgery
PROC: 0SRD0J9 Replacement of Left Knee Joint with Synthetic Substitute, Cemented, Open Approach (ICD-10-PCS; principal; 2017-09-14 06:48)
DX: M17.12 Unilateral primary osteoarthritis, left knee (principal); M41.9 Scoliosis, unspecified; I10 Essential (primary) hypertension; E78.5 Hyperlipidemia, unspecified; Z95.5 Presence of coronary angioplasty implant and graft; I25.10 Atherosclerotic heart disease of native coronary artery without angina pectoris; N28.9 Disorder of kidney and ureter, unspecified; Z98.1 Arthrodesis status
CPT/HCPCS: 73560; 80053; 83036; 83735; 84100; 84439; 84443; 85025; 86850; 86900; 86901; 94150; C1776; C9290; J0131; J0690; J1100; J1580; J1885; J2250; J2370; J2405; J3010; J7120

== ENCOUNTER → 2017-08-31 | Outpatient (CLI) | payer MEDICARE ==
[~2017-08-31] MED LIST: AMBI5TAB PO; AMLO5 PO; ASPI81TA23 PO; BIOT1000 PO; CALC1TAB34 PO; DIOV160T6 PO; FOLI800T PO; GLUC500T4 PO; LIPI40TA PO; MAGN400T PO; MULTTAB4 PO; TOPR50TA PO; VITA10002 PO
[2017-08-31 08:43] LABS: INTERNATIONAL NORMALIZED RATIO 1.1 RATIO
[2017-08-31 08:44] LABS: HEMATOCRIT 36.7 % (35.0-46.0); HEMOGLOBIN 12.4 GM/DL (11.6-15.3); MEAN CELL VOLUME 92.4 FL (80.0-100.0); MEAN CORPUSCULAR HEMOGLOBIN 31.3 PG (27.0-34.0); MEAN CORPUSCULAR HGB CONC 33.9 % (32.0-36.0); MEAN PLATELET VOLUME 7.5 FL (7.0-11.0); PLATELET COUNT 216 TH/MM3 (150-450); RED BLOOD COUNT 3.97 MIL/MM3 (4.00-5.30); RED CELL DISTRIBUTION WIDTH 13.5 % (11.6-17.2); WHITE BLOOD COUNT 5.7 TH/MM3 (4.0-11.0)
[2017-08-31 09:04] LABS: BICARBONATE 27.2 MEQ/L (21.0-32.0); CREATININE 0.87 MG/DL (0.50-1.00)
[2017-08-31 10:07] LABS: BILIRUBIN, URINE NEG (NEG); BLOOD, URINE NEG (NEG); GLUCOSE,URINE NEG (NEG); KETONE, URINE NEG (NEG); NITRITE,URINE NEG (NEG); URINE COLOR YELLOW (YELLW/STRAW); URINE LEUKOCYTE ESTERASE NEG (NEG)
--- NOTE | 2017-09-02 11:56 | EKG ---
Date Performed: 08/31/2017 Time Performed: 08:34:18 PTAGE: 72 years EKG: SINUS BRADYCARDIA BORDERLINE ECG NO PREVIOUS TRACING DOCTOR: Jonas Juaerz Interpretating Date/Time 09/02/2017 11:55:15
== END ==
LOC: CPRE 07:59
PROVIDERS: ATTEND Orthopaedic Surgery
DX: Z01.810 Encounter for preprocedural cardiovascular examination (principal); Z01.812 Encounter for preprocedural laboratory examination; M79.609 Pain in unspecified limb; M17.12 Unilateral primary osteoarthritis, left knee; M21.162 Varus deformity, not elsewhere classified, left knee; I10 Essential (primary) hypertension; R94.31 Abnormal electrocardiogram [ECG] [EKG]
CPT/HCPCS: 36415; 80048; 81001; 85027; 85610; 85730; 93005